=== PATIENT | female | born 1950 | race Caucasian/White ===

== ENCOUNTER 2017-03-26 11:15 | Emergency (ER) | payer MEDICARE, OTHER ==
[2017-03-26 11:15] VITALS: BMI 26.9
[2017-03-26 11:30] VITALS: O2SAT 98
--- NOTE | 2017-03-26 12:01 | ED PDOC ---
Lower Extremity Pain/Injury Time Seen by Provider: 03/26/17 11:40 Chief Complaint (Nursing): Lower Extremity Problem/Injury Chief Complaint (Provider): fall History Per: Patient Additional Complaint(s): 66-year-old female presents to emergency department with right hip pain and bilateral knee pain status post accidental fall last night. Patient walks with cane and/or walker at baseline and was walking to her bathroom yesterday evening when she tripped and fell. She denies dizziness or syncope prior to fall. She did not sustain loss of consciousness or head injury. Patient woke up today with increasing pain and swelling to both knees and right hip. Ibuprofen taken yesterday did help the pain. She rates current pain as a 6 out of 10. She is able to ambulate and weight-bear with the assistance of her walker which she uses at baseline. Past Medical History Reviewed: Historical Data, Nursing Documentation, Vital Signs Vital Signs: Last Vital Signs Temp Pulse Resp BP Pulse Ox 98 03/26/17 11:28 - Medical History PMH: Arthritis (s/p R TKR 7 yeras ago), Gastritis, HTN, Hypercholesterolemia, Hypothyroidism, Rheumatoid Arthritis - Surgical History Surgical History: Appendectomy, Cholecystectomy Other surgeries: bilateral knee surgery, right hip surgery - Family History Family History: States: No Known Family Hx - Living Arrangements Living Arrangements: With Family - Social History Current smoker - smoking cessation education provided: No Alcohol: None Drugs: Denies - Home Medications Home Medications: Ambulatory Orders Medication Instructions Recorded Atenolol 50 mg PO DAILY 06/27/14 Betaine HCl/Folic Acid/Methy 1 cap PO DAILY 06/27/14 [B6-Folic Acid] Levothyroxine Sodium 88 mcg PO DAILY 06/27/14 Methylprednisolone 4 mg PO DAILY 06/27/14 amLODIPine [Norvasc] 5 mg PO DAILY 06/27/14 Atorvastatin [Lipitor] 20 mg PO 2200 #0 tab 07/16/14 Enoxaparin [Lovenox] 30 mg SC Q12 #0 syr 07/16/14 Ferrous Sulfate [Feosol] 324 mg PO BID #0 ect 07/16/14 Pantoprazole [Protonix EC Tab] 40 mg PO DAILY #0 ect 07/16/14 - Allergies Allergies/Adverse Reactions: Allergies Allergy/AdvReac Type Severity Reaction Status Date / Time No Known Allergies Allergy Verified 06/27/14 08:41 Wells Criteria for PE - Wells Criteria for Pulmonary Embolism Clinical Signs and Symptoms of DVT: No P.E is #1 Diagnosis, or Equally Likely: No Heart Rate >100: No Immobilization at least 3 days;Surgery previous 4 weeks: No Previous, objectively diagnosed PE or DVT: No Hemoptysis: No Malignancy w/treatment within 6 months, or palliative: No Total Score: 0 Review of Systems ROS Statement: Except As Marked, All Systems Reviewed And Found Negative Musculoskeletal: Positive for: Other (b/l knee pain and right hip pain s/p trip and fall last night) Neurological: Positive for: Other (denies head injury or LOC, denies dizziness or syncope prior to fall) Physical Exam - Reviewed Nursing Documentation Reviewed: Yes Vital Signs Reviewed: Yes - Physical Exam Appears: Positive for: Well, Non-toxic, No Acute Distress Head Exam: Positive for: ATRAUMATIC, NORMAL INSPECTION Skin: Negative for: Rash Neck: Positive for: Painless ROM Cardiovascular/Chest: Positive for: Regular Rate, Rhythm Respiratory: Positive for: Normal Breath Sounds Back: Negative for: L CVA Tenderness, R CVA Tenderness, Vertebral Tenderness Extremity: Positive for: Other (Mild tenderness to right lateral hip with decreased range of motion, no swelling or ecchymosis noted, right knee demonstrates diffuse soft tissue swelling with no ecchymosis, full range of motion with pain, left knee demonstrates diffuse soft tissue swelling with full range of motion, no hemostasis, full range of motion with pain, no calf tenderness bilaterally, normal distal sensation bilateral lower extremities) Neurologic/Psych: Positive for: Alert, Oriented - ECG O2 Sat by Pulse Oximetry: 98 Pulse Ox Interpretation: Normal - Other Rad Right hip and pelvis x-rays X-Ray: Interpreted by Me, Viewed By Me X-Ray Interpretation: prothesis in place, no fx, no dis Left knee x-ray X-Ray: Interpreted by Me, Viewed By Me X-Ray Interpretation: severe arthritis, no fx, no dis Right knee x-ray X-Ray: Interpreted by Me, Viewed By Me X-Ray Interpretation: prosthesis in place, no fx, no dis Medical Decision Making Medical Decision Makin-year-old female with right hip pain and bilateral knee pain status post accidental fall Plan: Motrin for pain X-ray right hip and pelvis X-ray left knee X-ray right knee Patient feels better after Motrin dose, she is aware of all diagnostic testing results, all questions answered. She was advised to ice and elevate affected areas and continue with ibuprofen for pain. Patient was referred to orthopedist production grip and advised to follow up in 2-3 days. Disposition - Clinical Impression Clinical Impression: Contusion, hip, Knee contusion, Accidental fall Counseled Patient/Family Regarding: Studies Performed, Diagnosis, Need For Followup - Disposition Referrals: Chicho Wagner MD [Staff Provider] - Lucita Dick MD [Family Provider] - Disposition: Routine/Home Disposition Time: 13:57 Condition: STABLE Additional Instructions: Ice and elevate affected areas. Take ibuprofen for pain as needed. Follow up with primary doctor or orthopedist in 2-3 days. Instructions: Knee Sprain (ED), Hip Contusion (ED), Hip Sprain (ED), Contusion in Adults (ED) Print Language: BRAZILIAN
[2017-03-26 12:03] VITALS: BP 153/78; PULSE 81; RESP 14; TEMP 99
--- NOTE | 2017-03-26 16:49 | RAD ---
Right knee radiographs Indication: Trauma Comparison: None available Findings: Right knee arthroplasty. No acute displaced fracture. No dislocation. Soft tissues appear unremarkable. Impression: Right knee arthroplasty. No acute displaced fracture or dislocation identified. If symptoms persist or if there is continued clinical concern, x-ray follow-up in 7-10 days should be considered.
--- NOTE | 2017-03-26 16:49 | RAD ---
Indication: None available Right hip radiographs Comparison: None available Findings: Right hip arthroplasty. No acute displaced fracture or dislocation identified. Ossific excrescence about the medial aspect proximal femur. Sacroiliac joints appear intact. Mild constipation. Soft tissues appear unremarkable. Impression: No acute displaced fracture or dislocation evident. If high clinical index of suspicion, suggest cross-sectional imaging for further evaluation. Otherwise, if symptoms persist or if there is continued clinical concern, x-ray follow-up in 7-10 days should be considered. Right hip arthroplasty. Ossific excrescence about the medial aspect proximal femur.
--- NOTE | 2017-03-26 16:49 | RAD ---
Left knee radiographs Indication: Trauma Comparison: None available Findings: Severe degenerative changes with tricompartmental narrowing, severe laterally. Endplate sclerosis and subchondral cysts. Diffuse osseous demineralization limits evaluation for acute fracture lines. Small suprapatellar joint effusion. No acute displaced fracture or dislocation identified. Vascular calcifications. Impression: Severe degenerative changes. Osseous demineralization. Small suprapatellar joint effusion. No acute displaced fracture or dislocation identified. If symptoms persist or if there is continued clinical concern, x-ray follow-up in 7-10 days should be considered.
== END 2017-03-26 14:12 | disposition home or self-care (01) ==
LOC: H.ER 11:15
DX: S70.01XA Contusion of right hip, initial encounter (principal); S80.02XA Contusion of left knee, initial encounter; S80.01XA Contusion of right knee, initial encounter; W01.0XXA Fall on same level from slipping, tripping and stumbling without subsequent striking against object, initial encounter; Y93.01 Activity, walking, marching and hiking

== ENCOUNTER 2017-08-18 21:39 | Emergency (ER) | payer MEDICARE, OTHER ==
[2017-08-18 21:40] VITALS: BMI 26.9
[2017-08-18 21:51] VITALS: RESP 16; TEMP 98.2; O2SAT 99
--- NOTE | 2017-08-18 22:31 | ED PDOC ---
HPI: Hypertension/Hypotension Time Seen by Provider: 08/18/17 22:00 Chief Complaint (Nursing): High Blood Pressure Chief Complaint (Provider): high blood pressure History Per: Patient History/Exam Limitations: no limitations Onset/Duration Of Symptoms: Days (6) Current Symptoms Are (Timing): Still Present Associated Symptoms: Dizziness, Headache Additional History Per: Patient, Family Additional Complaint(s): 67 y/o female presents with daughter for evaluation of elevated blood pressure x 6 days. Patient states readings are 175/99, when she usually runs 125/80. Patient notes today intermittent headaches, with associated dizziness when walking which started around 1:00. Denies fever, extremity numbness/weakness, chest pain, shortness of breath, palpitations, abdominal pain, leg pain/ swelling. Past Medical History Reviewed: Historical Data, Nursing Documentation, Vital Signs Vital Signs: Last Vital Signs Temp 98.2 F 08/18/17 21:49 Pulse 70 08/18/17 21:49 Resp 16 08/18/17 21:49 BP 159/6 H 08/18/17 21:49 Pulse Ox 99 08/18/17 21:49 - Medical History PMH: Arthritis (s/p R TKR 7 yeras ago), Gastritis, HTN, Hypercholesterolemia, Hypothyroidism, Rheumatoid Arthritis Denies: Chronic Kidney Disease - Surgical History Surgical History: Appendectomy, Cholecystectomy - Family History Family History: States: No Known Family Hx - Home Medications Home Medications: Ambulatory Orders Medication Instructions Recorded Atenolol 50 mg PO DAILY 06/27/14 Betaine HCl/Folic Acid/Methy 1 cap PO DAILY 06/27/14 [B6-Folic Acid] Levothyroxine Sodium 88 mcg PO DAILY 06/27/14 Methylprednisolone 4 mg PO DAILY 06/27/14 amLODIPine [Norvasc] 5 mg PO DAILY 06/27/14 Atorvastatin [Lipitor] 20 mg PO 2200 #0 tab 07/16/14 Enoxaparin [Lovenox] 30 mg SC Q12 #0 syr 07/16/14 Ferrous Sulfate [Feosol] 324 mg PO BID #0 ect 07/16/14 Pantoprazole [Protonix EC Tab] 40 mg PO DAILY #0 ect 07/16/14 - Allergies Allergies/Adverse Reactions: Allergies Allergy/AdvReac Type Severity Reaction Status Date / Time No Known Allergies Allergy Verified 06/27/14 08:41 Review of Systems ROS Statement: Except As Marked, All Systems Reviewed And Found Negative Neurological: Positive for: Headache, Dizziness Physical Exam - Reviewed Nursing Documentation Reviewed: Yes Vital Signs Reviewed: Yes - Physical Exam Appears: Positive for: Well, Non-toxic, No Acute Distress Head Exam: Positive for: ATRAUMATIC, NORMAL INSPECTION, NORMOCEPHALIC Skin: Positive for: Normal Color Eye Exam: Positive for: Normal appearance, EOMI, PERRL ENT: Positive for: Normal ENT Inspection Cardiovascular/Chest: Positive for: Regular Rate, Rhythm Respiratory: Positive for: Normal Breath Sounds Gastrointestinal/Abdominal: Positive for: Normal Exam Back: Positive for: Normal Inspection Extremity: Positive for: Normal ROM Neurologic/Psych: Positive for: Alert, Oriented. Negative for: Motor/Sensory Deficits - Laboratory Results Result Diagrams: 08/18/17 22:51 08/18/17 22:51 - ECG ECG: Positive for: Viewed By Me (reviewed by ED attending) ECG Rhythm: Positive for: Sinus Bradycardia (59bpm) O2 Sat by Pulse Oximetry: 99 - Progress ED Course And Treament: labs, ekg, CT head, PO tylenol EXAM: CT Head Without Intravenous Contrast CLINICAL HISTORY: 67 years old, female; Pain and signs and symptoms; Dizziness; Headache; Patient HX: Cervical surgery about 4 yrs ago; Additional info: Headache, dizziness. Sent phy. Doc. TECHNIQUE: Axial computed tomography images of the head/brain without intravenous contrast. All CT scans at this facility use one or more dose reduction techniques, viz.: automated exposure control; ma/kV adjustment per patient size (including targeted exams where dose is matched to indication; i.e. head); or iterative reconstruction technique. Coronal and sagittal reformatted images were created and reviewed. COMPARISON: No relevant prior studies available. FINDINGS: Brain: No acute intracranial hemorrhage. Age-appropriate periventricular white matter disease. No edema. Ventricles: Age-appropriate ventriculomegaly. Bones: No acute displaced fracture. Fixation hardware within the base of the posterior skull. Sinuses: Unremarkable as visualized. No acute sinusitis. Mastoid air cells: Unremarkable as visualized. No mastoid effusion. IMPRESSION: No acute intracranial hemorrhage, or suspicious mass effect. On re-eval, patient states symptoms improved. Patient/daughter educated on findings, discharged with instructions to follow up PMD 2 days. Return precautions given. Disposition - Clinical Impression Clinical Impression: HTN (hypertension), Headache, Dizziness - Patient ED Disposition Is Patient to be Admitted: No Counseled Patient/Family Regarding: Studies Performed, Diagnosis, Need For Followup, Rx Given - Disposition Disposition: Routine/Home Disposition Time: 00:21 Condition: IMPROVED Instructions: Hypertension (ED), Acute Headache (ED), Dizziness (ED) Forms: [employer] ([employer]wana) Print Language: YAKUT
[2017-08-18 22:57] LABS: BASO % 0.5 % (0.0-2.0); EOS # 0.2 K/uL (0.0-0.7); EOS % 1.7 % (0.0-4.0); HEMATOCRIT 35.9 % (34.0-47.0); LYMPH # 2.4 K/uL (1.0-4.3); MEAN CELL VOLUME 87.9 fl (81.0-99.0); MEAN CORPUSCULAR HEMOGLOBIN 28.8 pg (27.0-31.0); MEAN CORPUSCULAR HGB CONC 32.7 g/dL (33.0-37.0); MONO # 0.7 K/uL (0.0-0.8); MONO % 7.5 % (0.0-10.0); NEUT # 5.6 K/uL (1.8-7.0); NEUT % 63.3 % (50.0-75.0); RED CELL DISTRIBUTION WIDTH 16.1 % (11.5-14.5); WHITE BLOOD COUNT 8.9 K/uL (4.8-10.8)
[2017-08-18 23:15] LABS: ALB/GLOB RATIO 1.4 (1.0-2.1); ALKALINE PHOSPHATASE 101 U/L (38-126); ALT/SGPT 42 U/L (9-52); AST/SGOT 30 U/L (14-36); BILIRUBIN,TOTAL 0.3 mg/dl (0.2-1.3); BLOOD UREA NITROGEN 13 mg/dl (7-17); CALCIUM 9.4 mg/dL (8.4-10.2); CARBON DIOXIDE 23 mmol/L (22-30); CHLORIDE 106 mmol/L (98-107); GFR AFRICAN-AMERICAN > 60; GLUCOSE,RANDOM 145 mg/dL (65-105); POTASSIUM 3.9 MMOL/L (3.6-5.0); SODIUM 141 mmol/l (132-148); TOTAL PROTEIN 7.7 G/DL (6.3-8.2)
--- NOTE | 2017-08-18 23:16 | CT ---
EXAM: CT Head Without Intravenous Contrast CLINICAL HISTORY: 67 years old, female; Pain and signs and symptoms; Dizziness; Headache; Patient HX: Cervical surgery about 4 yrs ago; Additional info: Headache, dizziness. Sent phy. Doc. TECHNIQUE: Axial computed tomography images of the head/brain without intravenous contrast. All CT scans at this facility use one or more dose reduction techniques, viz.: automated exposure control; ma/kV adjustment per patient size (including targeted exams where dose is matched to indication; i.e. head); or iterative reconstruction technique. Coronal and sagittal reformatted images were created and reviewed. COMPARISON: No relevant prior studies available. FINDINGS: Brain: No acute intracranial hemorrhage. Age-appropriate periventricular white matter disease. No edema. Ventricles: Age-appropriate ventriculomegaly. Bones: No acute displaced fracture. Fixation hardware within the base of the posterior skull. Sinuses: Unremarkable as visualized. No acute sinusitis. Mastoid air cells: Unremarkable as visualized. No mastoid effusion. IMPRESSION: No acute intracranial hemorrhage, or suspicious mass effect.
[2017-08-18 23:47] LABS: THYROID STIMULATING HORMONE 0.48 mIU/ML (0.46-4.68)
[2017-08-18 23:55] VITALS: BP 165/92; PULSE 60
--- NOTE | 2017-08-20 18:04 | CARD ---
APPROVED REPORT EKG Measurement Heart [id number] <Conclusion> Sinus bradycardia Otherwise normal ECG
== END 2017-08-19 00:43 | disposition home or self-care (01) ==
LOC: H.ER 21:39
DX: I10 Essential (primary) hypertension (principal); R51 Headache; R42 Dizziness and giddiness; E03.9 Hypothyroidism, unspecified; E78.00 Pure hypercholesterolemia, unspecified; M06.9 Rheumatoid arthritis, unspecified